=== PATIENT | female | born 1950 | race Caucasian/White ===

== ENCOUNTER 2018-10-14 06:55 | Inpatient (IN) | payer MEDICARE, MEDICAID ==
--- NOTE | 2018-10-14 07:05 | ED ---
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 Per EMS: [place]. The water was reported to be 45-50 degrees F. She left a suicide note at the falls stating she was going to swim until she couldn't swim any more. The note was found by a fisherman, who found the patient. The fisherman called 911 and was pulling her out when police and EMS arrived on scene. In this note, she specified a home and her wishes to be cremated. At bedside, patient states "so cold" and is shivering non-stop. Pt is alert and able to answer questions upon arrival, although shivering. Pt denies falling or jumping. Per nurse, she is A&Ox3. Per [employer] patient also left a note at home saying she was going to the falls. Vitals at bedside: HR: fluctuating wildly. HR by auscultation is 96 bpm and theres a systolic murmur. BP: 118/71. ED provider in room at 0704. Home Medications Medication Instructions Recorded Confirmed Type Vitamin B Complex TAB* [B 1 tab PO DAILY 08/05/15 01/08/16 History Complex-50*] - History Of Current Complaint Hx Obtained From: EMS, Medical Records, Other: - POLICE who report 2 suicide notes Hx From Patient Unobtainable Due To: Extremis Onset/Duration: Still Present Timing: Constant Severity Initially: Severe Severity Currently: Severe Character: Depressed - suicidal per notes Aggravating Factor(s): Nothing Alleviating Factor(s): Nothing Has Suicidal: Reports: Demonstrates Gesture - with attempt to swim in cold water of falls estimated to be 45 degrees Has Homicidal: Reports: Demonstrates Gesture - Allergies/Home Medications Allergies/Adverse Reactions: Allergies Allergy/AdvReac Type Severity Reaction Status Date / Time No Known Allergies Allergy Verified 10/14/18 08:55 PMH/Surg Hx/FS Hx/Imm Hx Previously Healthy: Yes Endocrine/Hematology History: Reports: Hx Anemia - HX OF IN THE PAST Cardiovascular History: Denies: Hx Pacemaker/ICD Musculoskeletal History: Denies: Hx Osteoporosis Sensory History: Denies: Hx Contacts or Glasses, Hx Hearing Aid Opthamlomology History: Denies: Hx Contacts or Glasses - Surgical History Surgery Procedure, Year, and Place: none Infectious Disease History: No Infectious Disease History: Denies: History Other Infectious Disease - Family History Family History: neg: anaesthesia reaction - Social History Lives: With Family - sister Alcohol Use: Occasionally Hx Substance Use: No Substance Use Type: Reports: None Hx Tobacco Use: No Smoking Status (MU): Never Smoked Tobacco Review of Systems - ROS Summary Review of Systems Summary: LEVEL 5 CAVEAT: ROS LIMITED DUE TO PATIENT CONDITION, EXTREMIS Positive: Other - cold to touch Cardiovascular: Negative Respiratory: Negative Gastrointestinal: Negative Positive: Other - cold Positive: Depressed - +SI and suicide gesture All Other Systems Reviewed And Are Negative: No Physical Exam - Summary Physical Exam Summary: Appearance: Ill-appearing, no acute pain distress, well-nourished, wet hair, shivering Skin: Body is cold to touch, mottled only at knees, superficial bruising to LE, no central cyanosis Head: Normal Head/Face inspection, atraumatic Eyes: Conjunctiva clear ENT: Normal inspection Neck: Supple, no nodes, no JVD Respiratory: Lungs clear, normal breath sounds, no respiratory distress Cardio: HR by auscultation is 96 bpm and theres a systolic murmur heard best at apex. Pulses normal, brisk capillary refill Abdomen: Soft, nontender Bowel sounds: Present Musculoskeletal: Strength Intact/ROM intact, no calf tenderness, no edema. Psychological: Suicidal Neuro: Alert, muscle tone normal, no focal deficit GCS: 14 Triage Information Reviewed: Yes Vital Signs Reviewed: Yes - [place] Coma Scale Best Eye Response: 4 - Spontaneous Best Motor Response: 6 - Obeys Commands Best Verbal Response: 4 - Confused Coma Scale Total: 14 Diagnostics - Laboratory Result Diagrams: 10/14/18 07:52 10/14/18 07:52 Lab Statement: Any lab studies that have been ordered have been reviewed, and results considered in the medical decision making process. - Radiology CXR Radiology Interpretation Completed By: Radiologist Summary of Radiographic Findings: IMPRESSION: NO EVIDENCE FOR ACTIVE CARDIOPULMONARY DISEASE. ED provider has reviewed this report. - EKG 0706 Cardiac Rate: NL - 169 bpm (auscultated at bedside at 96bpm) EKG Rhythm: Sinus Rhythm ST Segment: Non-Specific Ectopy: None EKG Comparison: Other - No prior for comparison. Summary of EKG Findings: EKG at 06 shows normal sinus rhythm at 169 bpm (by ausculatation 96 bpm) with prolonged IV non-specific (119), prolonged QTc (643) , non-specific ST, no ectopy. No prior for comparison. Re-Evaluation - Re-Evaluation 1 Re-Evaluation Time: 08:02 Change: Improved Comment: Vitals at bedside: HR: 67 bpm, 94% O2 sat, BP: 98/59. Pt speaking full sentences at bedside. Requesting provider to contact her land lady, Radha Dawn. Course/Dx - Course Course Of Treatment: Pt is a 68 y/o F brought in by EMS and police s/p suicide attempt; she was found in the falls (water temp 45-50 F). She left a suicide note at the falls stating she was going to swim until she couldn't swim any more. A fisherman found the note, and patient in the water. Pt also left a suicide note at home. Pt denies falling or jumping. She is A&Ox3, shivering profusely. Body temp is 25.5 C. 0815: Contacting Manisha's tony durant via phone per her requst: Radha Dawn, . Left voicemail. Called again at 1103, left a second voicemail. 1208: Spoke to Dr. Dawn by phone and only confirmed that patient was admitted to hospital. Critical lab value: lactic acid: 3.1. CXR shows no acute findings. EKG at 0706 shows normal sinus rhythm at 169 bpm (by ausculatation 96 bpm) with prolonged IV non-specific (119), prolonged QTc (643), non-specific ST, no ectopy. No prior for comparison. No definite Pos[place] waves noted. Considerable artifact due to shivering. In the ED course a temperature probe santiago was inserted. Pt was placed on vapotherm warming oxygen, placed on Dino hugger and given warm blankets. Pt's core was warmed prior to extremities. Consulted with Dr. Roach, gis application developer, who will continue re-warming procedure and take patient to ICU. Allergies noted. Pt medications reviewed this visit. Nurses note reviewed. - Differential Dx/Clinical Impression Provider Diagnosis: Hypothermia, Suicide attempt by method other than substance overdose, Systolic murmur - Physician Notifications Discussed Care Of Patient With: Douglas Roach - interventionalist Time Discussed With Above Provider: 07:19 Instructed by Provider To: Other - Will take to ICU. Consult again at 729: Dr. Roach will begin re-warmining protocol. Current body temp at 83 F. - Critical Care Time Critical Care Time: 30-74 min Discharge - Sign-Out/Discharge Documenting (check all that apply): Patient Departure - ADMIT / ICU All imaging exams completed and their final reports reviewed: Yes Patient Received Moderate/Deep Sedation with Procedure: No - Discharge Plan Condition: Critical Disposition: ADMITTED TO [facility] - Billing Disposition and Condition Condition: CRITICAL Disposition: Admitted to [facility] - Attestation Statements Document Initiated by Scribe: Yes Documenting Scribe: Pan Celaya Provider For Whom Scribe is Documenting (Include Credential): Dr. Vaishali Fuchs MD Scribe Attestation: Pan Phillips, scribed for Dr. Vaishali Fuchs MD on 10/17/18 at 2120. Scribe Documentation Reviewed: Yes Provider Attestation: The documentation as recorded by the Pan isaac accurately reflects the service I personally performed and the decisions made by me, Dr. Vaishali Fuchs MD Status of Scribe Document: Viewed
--- OUTSIDE RECORDS SUMMARY | 2018-10-14 07:32 | XMS REPORT | Continuity of Care Document ---
:1950 External Reference #:[id number] Author Name Skyler Hall Care Team Providers Name Role Phone Terry Baldwin MD Care Team Information Referral Manager Unavailable Charles Delgado MD Primary Care Physician Unavailable Payers Date Identification Numbers Payment Provider Subscriber Effective: 2015 Policy Number: [id number] Medicare Manisha Strange PayID: [id number] [address] [place] [address] Effective: 2015 Policy Number: [id number] Medicaid Manisha Strange PayID: [id number] [address] [place] [address] Problems Active Problems Provider Date Impaired glucose tolerance Terry Liang M.D. Onset: 04/21/2016 Pathological fracture of radius due to Ti Chang MD Onset: 04/30/2016 osteoporosis Chronic kidney disease stage 2 Terry Liang M.D. Onset: 07/24/2016 Osteoporosis Terry Liang M.D. Onset: 07/24/2016 Resolved Problems Screening for osteoporosis Ti Chang MD Onset: 05/05/2016 Resolved: 10/23/2016 Closed fracture of left ankle Terry Liang M.D. Onset: 08/09/2015 Resolved: 10/23/2016 Closed fracture of distal end of radius Ti Chang MD Onset: 01/03/2016 Resolved: 10/23/2016 Other fractures of lower end of left radius, Ti Chang MD Onset: 2015 subsequent encounter for closed fracture with routine healing Resolved: 10/23/2016 Family History Date Family Member(s) Observation Comments Father Prostate Cancer Father due to Prostate Cancer () - mets Mother Alzheimer's Disease Mother due to Natural Causes () Siblings 3 2 now First Brother due to Stroke () First Brother due to Multiple Sclerosis () Social History Type Date Description Comments Sex Unknown Marital Status Lives With Alone 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D. 02/05/2016 Capsules day Percocet take 1-2 tabs 30tabs Terry Baldwin, 01/08/2016 - 5-325mg by mouth q4-6 M.D. 02/05/2016 Tablets hours as needed pain Bactrim DS 1 by mouth 30tabs S92.012D Terry Baldwin, 08/22/2015 - twice a day M.D. 11/20/2015 800-160mg Tablets Cephalexin 1po qid Unknown - 500mg 11/20/2015 Capsules Hydrocodone-Acetami 1 by mouth Unknown - nophen every 4-6 hours 04/21/2016 5-325mg prn. Tablets Calcium 600 + D 1 by mouth Unknown - twice a day 10/06/2018 [id number] Tablets Medications Administered in Office Medication SIG Qnty Indications Ordering Provider Date PPD Injection Nurse Visit [facility] 04/07/2016 Immunizations CPT Code Status Date Vaccine Lot # [id number] Given 07/24/2016 Tdap - Tetanus/Diptheria/Acellular Pertussis [id number] Vital Signs Date Vital Result Comment 10/06/2018 9:02am Height 62 inches 5'2" Weight 129.00 lb Heart Rate 78 /min BP Systolic Sitting 117 mmHg BP Diastolic Sitting 73 mmHg BMI (Body Mass Index) 23.6 kg/m2 08/26/2017 10:37am Height 62 inches 5'2" Weight 174.00 lb Heart Rate 87 /min BP Systolic Sitting 114 mmHg BP Diastolic Sitting 64 mmHg Body Temperature 97.9 F O2 % BldC Oximetry 98 % BMI (Body Mass Index) 31.8 kg/m2 10/23/2016 10:31am Weight 174.25 lb Heart Rate 83 /min BP Systolic 138 mmHg BP Diastolic 86 mmHg Body Temperature 97.0 F O2 % BldC Oximetry 95 % 09/01/2016 10:21am Height 66 inches 5'6" Weight 173.00 lb Heart Rate 102 /min BP Systolic 160 mmHg BP Diastolic 87 mmHg Respiratory Rate 16 /min Body Temperature 98.5 F Pain Level 0 BMI (Body Mass Index) 27.9 kg/m2 07/24/2016 10:14am Height 66 inches 5'6" Weight 173.00 lb Heart Rate 90 /min BP Systolic Sitting 128 mmHg BP Diastolic Sitting 84 mmHg Respiratory Rate 15 /min Body Temperature 98.0 F O2 % BldC Oximetry 97 % BMI (Body Mass Index) 27.9 kg/m2 06/30/2016 10:04am Height 66 inches 5'6" Weight 173.00 lb Heart Rate 60 /min Respiratory Rate 16 /min Pain Level 0 BMI (Body Mass Index) 27.9 kg/m2 05/19/2016 1:16pm Height 66 inches 5'6" Weight 173.00 lb Respiratory Rate 16 /min Pain Level 0 BMI (Body Mass Index) 27.9 kg/m2 04/30/2016 9:14am Height 66 inches 5'6" Weight 173.00 lb Respiratory Rate 16 /min Pain Level 0 BMI (Body Mass Index) 27.9 kg/m2 04/21/2016 9:19am Height 66 inches 5'6" Weight 173.00 lb Heart Rate 92 /min BP Systolic Sitting 134 mmHg BP Diastolic Sitting 80 mmHg Body Temperature 97.4 F O2 % BldC Oximetry 97 % BMI (Body Mass Index) 27.9 kg/m2 02/21/2016 10:21am Height 66 inches 5'6" Weight 170.00 lb Heart Rate 60 /min Respiratory Rate 16 /min Pain Level 0 BMI (Body Mass Index) 27.4 kg/m2 02/06/2016 11:17am Height 66 inches 5'6" Weight 175.00 lb Heart Rate 60 /min Respiratory Rate 16 /min Pain Level 0 BMI (Body Mass Index) 28.2 kg/m2 01/21/2016 3:42pm Height 66 inches 5'6" Weight 175.00 lb Body Temperature 98.8 F Pain Level 0 BMI (Body Mass Index) 28.2 kg/m2 01/07/2016 11:48am Height 66 inches 5'6" Weight 175.00 lb Pain Level 0 BMI (Body Mass Index) 28.2 kg/m2 01/03/2016 1:46pm Height 66 inches 5'6" Weight 175.00 lb Pain Level 0 BMI (Body Mass Index) 28.2 kg/m2 11/21/2015 10:22am Height 66 inches 5'6" Weight 172.00 lb Pain Level 0 BMI (Body Mass Index) 27.8 kg/m2 10/10/2015 10:41am Height 66 inches 5'6" Weight 172.00 lb Pain Level 0 BMI (Body Mass Index) 27.8 kg/m2 09/20/2015 10:50am Height 66 inches 5'6" Weight 172.00 lb Pain Level 1 BMI (Body Mass Index) 27.8 kg/m2 09/05/2015 11:03am Height 66 inches 5'6" Weight 172.00 lb Pain Level 0 BMI (Body Mass Index) 27.8 kg/m2 08/28/2015 2:39pm Height 66 inches 5'6" Weight 172.00 lb Pain Level 0 BMI (Body Mass Index) 27.8 kg/m2 08/22/2015 11:06am Height 66 inches 5'6" (stated height) Weight 172.00 lb Pain Level 0 BMI (Body Mass Index) 27.8 kg/m2 08/15/2015 10:13am Height 66 inches 5'6" (stated height) Weight 172.00 lb Pain Level 0 BMI (Body Mass Index) 27.8 kg/m2 08/09/2015 11:21am Height 66 inches 5'6" (stated height) Weight 172.75 lb Heart Rate 98 /min BP Systolic Sitting 120 mmHg BP Diastolic Sitting 78 mmHg Body Temperature 98.0 F Pain Level 0 O2 % BldC Oximetry 96 % BMI (Body Mass Index) 27.9 kg/m2 08/06/2015 2:29pm Height 66 inches 5'6" Weight 175.00 lb Heart Rate 99 /min BP Systolic 120 mmHg BP Diastolic 72 mmHg BMI (Body Mass Index) 28.2 kg/m2 Results Test Date Facility Test Result H/L Range Note Laboratory test 08/24/2018 [facility] Glucose 108 mg/dL High 70-100 finding [address] [place] [address] [phone] Hemoglobin A1c (Glyco HGB) 5.9 % High 4.0-5.6 1 Laboratory 10/23/2016 [facility] Hepatitis C Nonreactive N Nonreactive test finding [address] [place] [address] [phone] Pthi 10/23/2016 [facility] Calcium (PTH 10.0 mg/dL N 8.6-10.[address] Intact) [place], [place] [id number] [phone] PTH Intact 4.3 pmol/L N 1.3-9.3 Laboratory test 10/23/2016 [facility] Vitamin D Total 38.6 N 30-[address] 25(Oh) ng/mL [place], [place] [id number] [phone] Laboratory test 07/24/2016 [facility] Hemoglobin A1c 5.9 5-7 finding Lipid Profile 07/17/2016 [facility] Triglycerides 55 mg/dL N 2, 3 (Trig/Chol/HDL) [address] [place], [place] [id number] [phone] Cholesterol 195 mg/dL N 4 HDL Cholesterol 55.7 mg/dL N 5 LDL Cholesterol 128 mg/dL N 6 Laboratory test 07/17/2016 [facility] Glucose 112 mg/dL High 70-100 [address] [place] [address] [phone] Rubeola Measles 04/21/2016 [facility] Rubeola Positive N [address] (Measles) [place] [address] Antibody [phone] Rubeola IgG Antibody Index 1.4 N 9 Laboratory test 04/21/2016 [facility] Rubella Immune IU/mL N Immune finding [address] [place] [address] [phone] Mumps Igg 04/21/2016 [facility] Mumps Virus Negative N [address] [place] [place] [address] [phone] Mumps IgG Antibody Index 0.4 N 11 Laboratory test 08/09/2015 [facility] Hemoglobin A1c 6.4 % High Less than [address] (Glyco HGB) 6.0 [place] [address] [phone] Basic Metabolic 08/09/2015 [facility] Sodium 138 N 133-[address] mmol/[place] [address] [phone] Potassium 4.2 mmol/L N 3.5-5.0 Chloride 105 mmol/L N 101-111 Co2 Carbon Dioxide 26 mmol/L N 22-32 Anion Gap 7 mmol/L N 2-11 Glucose 84 mg/dL N 70-100 Blood Urea Nitrogen 28 mg/dL High 6-24 Creatinine 1.21 mg/dL High 0.51-0.95 BUN/Creatinine Ratio 23.1 High 8-20 Calcium 9.7 mg/dL N 8.6-10.3 Egfr Non- 44.7 N >60 Egfr 57.4 N >60 13 1 Therapeutic target for the treatment of diabetes mellitus patients is <7% HBA1C, and in selective patients <6.0%. Please refer to [place] [employer] diabetic care guidelines for further information. 2 FASTING 3 Desirable <150 Borderline high 150-199 High 200-499 Very High >500 4 Desirable <200 Borderline high 200-239 High >239 5 Low <40 Desirable: 40-60 High: >60 6 Desirable: <100 mg/dL Near Optimal: 100-129 mg/dL Borderline High: 130-159 mg/dL High: 160-189 mg/dL Very High: >189 mg/dL 7 FASTING 8 Results suggest response to immunization or prior exposure to the virus. REFERENCE VALUE Vaccinated: Positive (>=1.1 AI) Unvaccinated: Negative (<=0.8 AI) 9 Test Performed by: [address] [address] Patient Assessment Coordinator: Eros Vu II, M.D., Ph.D. 10 REFERENCE VALUE Vaccinated: Positive (>=1.1 AI) Unvaccinated: Negative (<=0.8 AI) 11 Test Performed by: [address] [place] [address] Patient Assessment Coordinator: Eros Vu II, M.D., Ph.D. 12 Therapeutic target for the treatment of diabetes Mellitus patients is <7% HBA1C, and in selective patients <6.0%.Please refer to [place] [employer] Diabetic care guidelines for further information. 13 Because ethnic data is not always readily available, this report includes an eGFR for both -Americans and non- Americans. The National Kidney Disease Education Program (NKDEP) does not endorse the use of the MDRD equation for patients that are not between the ages of 18 and 70, are , have extremes of body size, muscle mass, or nutritional status, or are non- or non-. According to the National Kidney Foundation, irrespective of diagnosis, the stage of the disease is based on the level of kidney function: Stage Description GFR(mL/min/1.73 m(2)) 1 Kidney damage with normal or decreased GFR 90 2 Kidney damage with mild decrease in GFR 60-89 3 Moderate decrease in GFR 30-59 4 Severe decrease in GFR 15-29 5 Kidney failure <15 (or dialysis) Procedures Date Code Description Status 05/12/2016 557220904 Bone Mineral Density Test Completed 01/21/2016 12337 Short Arm Cast Application Completed 01/08/2016 38024 Open TX Distal Radial Intra-Articular FX W Fixation Of Completed 3 Or More 01/08/2016 58817 Open TX Distal Radial Intra-Articular FX W Fixation Of Completed 3 Or More 01/03/2016 27950 Closed Treatment Distal Radial FX W/Manipulation Completed 08/15/2015 56185 Short Leg Cast Completed 08/09/2015 98292 EKG Tracing & Interpretation Completed 08/06/2015 55914 Short Leg Cast Completed Encounters Type Date Location Provider Dx Diagnosis Office Visit 10/23/2016 [facility] Charles Jiménez M81.0 Age-related 10:40a Medicine - Tbjuan carlos Delgado M.D.,FACP osteoporosis w/o Rd current pathological fracture R73.01 Impaired fasting glucose Z12.11 Encounter for screening for malignant neoplasm of colon Office Visit 09/01/2016 Orthopedic Ti Chang, S52.592D Oth fx of lower 10:15a Services Of MD brock neff, subs C.M.A. for clos fx w routn heal Office Visit 06/30/2016 Orthopedic Ti Chang, Z13.820 Encounter for 10:00a Services Of MD screening for C.M.A. osteoporosis S52.592D Oth fx of lower end left rad, subs for clos fx w routn heal M81.0 Age-related osteoporosis w/o current pathological fracture Z87.81 Personal history of (healed) traumatic fracture Z09 Encntr for f/u exam aft trtmt for cond oth than verena neoplm Office Visit 05/19/2016 1:00p Orthopedic Ti Chang, Z13.820 Encounter for Services Of screening for C.M.A. osteoporosis S52.592D Oth fx of lower end left rad, subs for clos fx w routn heal M80.032A Age-rel osteopor w current path fracture, l forearm, init M80.032D Age-rel osteopor w crnt path fx, l forearm, 7thD Office Visit 04/30/2016 9:00a Orthopedic Ti Chang, S52.592D Oth fx of Services Of Germán FRANCIS lower end left rad, subs for clos fx w routn heal M80.032A Age-rel osteopor w current path fracture, l forearm, init M80.032D Age-rel osteopor w crnt path fx, l forearm, 7thD Office Visit 04/21/2016 9:00a [facility] Internal Terry Z23 Encounter for Medicine - Jony Liang immunization [place] R73.09 Other abnormal glucose Z02.79 Encounter for issue of other medical certificate Office Visit 11/21/2015 Orthopedic Terry S92.012D Disp fx of body of 10:15a Services Of Jony Baldwin left calcaneus, C.M.A. subs for fx w routn heal Office Visit 10/10/2015 Jasvir Stewart S92.012D Disp fx of body of 10:45a Services Of Jony Baldwin left calcaneus, C.M.A. subs for fx w routn heal Office Visit 09/20/2015 Jasvir Lockett2.012D Disp fx of body of 10:50a Services Of Jony Baldwin left calcaneus, C.M.A. subs for fx w routn heal Office Visit 09/05/2015 Orthopedic Terry Lockett2.012D Disp fx of body of 11:00a Services Of Jony Baldwin left calcaneus, C.M.A. subs for fx w [facility] Office Visit 08/28/2015 Orthopedic Terry S92.012D Disp fx of body of 2:40p Services Of Jony Baldwin left calcaneus, C.M.A. subs for fx w [facility] Office Visit 08/22/2015 Orthopedic Terry S92.012D Disp fx of body of 11:15a Services Of Jony Baldwin left calcaneus, C.M.A. subs for fx w [facility] Office Visit 08/15/2015 Orthopedic Terry S92.012D Disp fx of body of 10:30a Services Of Jony Baldwin left calcaneus, C.M.A. subs for fx w [facility] Office Visit 08/09/2015 [facility] Internal Terry Z01.818 Encounter for other 11:00a Meche Liang M.D. preprocedural examination S82.892A Oth fracture of left lower leg, init for clos fx Office Visit 08/06/2015 2:00p Orthopedic Terry S92.012A Disp fx of body Services Of Jony Baldwin of left C.M.A. calcaneus, init for clos fx Plan of Treatment 10/06/2018 - Darlene Ledezma MDZ00.00 Encounter for general adult medical examination without abnoComments:You are due for breast cancer screening. Your cholesterol profile and other labs were reviewed today/are due, so please go for fasting blood draw and I will send you a letter with results within 2 weeks.Remember to wear sunscreen and see your dentist regularly.For optimum health, I recommend some form of regular exercise and integrating a lot of plant -based foods into your daily diet.I recommend an eye exam. We advise that everybody have a healthcare proxy and advanced directives on file.R73.01 Impaired fasting glucoseComments:Your hemoglobin A1c is down to 5.9%. Keep up the good workN18.3 Chronic kidney disease, stage 3 (moderate)M81.0 Age-related osteoporosis without current pathological fractuNew Xrays:Dexa Bone Dens Axial Skeleton (Hips, Pelvis, Spine), Ordered: 10/06/18Comments:make sure to get 1, 000mg a day at least from your diet.Vitamin D should be 1,000U every day and 2, 000U when you are not spending time out in the sun.Please call us for results of the test the week nmcmsE11.31 Encounter for screening mammogram for malignant neoplasm ofNew Xrays:Mammogram Screening Louie, Ordered: 10/06/18
[2018-10-14] MEDS ORDERED: NS 0.9% 1000 ML** 1,000 ML IV ONE (07:40)
[2018-10-14] MEDS ORDERED: NS 0.9% 1000 ML** 1,000 ML IV SCH (07:45)
[2018-10-14 08:00] LABS: ABS Basophils 0.1 10^3/ul (0-0.2); ABS Eosinophils 0.1 10^3/ul (0-0.6); ABS Lymphocytes 1.5 10^3/ul (1.0-4.8); ABS Neutrophils 8.7 10^3/ul (1.5-7.7); Eosinophil % 0.9 %; Hematocrit 38 % (35-47); Hemoglobin 12.4 g/dL (12.0-16.0); Lymphocyte % 12.9 %; Mean Corpuscular HGB Conc 33 g/dL (31-36); Mean Corpuscular Hemoglobin 32 pg (27-31); Mean Corpuscular Volume 97 fL (80-97); Mean Platelet Volume 8.9 fL (7.4-10.4); Nucleated Red Blood Cells % 0.1; Platelet Count 208 10^3/uL (150-450); Red Blood Count 3.91 10^6 /uL (3.70-4.87); Red Cell Distribution Width 13 % (10.5-15); White Blood Count 11.3 10^3/uL (3.5-10.8)
[2018-10-14 08:19] LABS: Albumin 3.5 g/dL (3.2-5.2); Albumin/Globulin Ratio 1.6 (1-3); BUN/Creatinine Ratio 16.5 (8-20); Calcium 8.8 mg/dL (8.6-10.3); EGFR African American 60.2 (>60); EGFR Non-African American 49.8 (>60); Globulin 2.2 g/dL (2-4); Potassium 4.2 mmol/L (3.5-5.0); Total Bilirubin 0.3 mg/dL (0.2-1.0); Total Protein 5.7 g/dL (6.4-8.9)
[2018-10-14 09:30] LABS: Urine Appearance Cloudy; Urine Bacteria Absent (Absent); Urine Bilirubin Negative (Negative); Urine Blood Negative (Negative); Urine Color Yellow; Urine Glucose 2+(150 mg/dL) (Negative); Urine Ketones Trace (Negative); Urine Nitrite Positive (Negative); Urine Protein 1+(30 mg/dL) (Negative); Urine Red Blood Cell 1+(3-5/hpf) (Absent); Urine Specific Gravity 1.016 (1.010-1.030); Urine Squamous Epithelial Cell Present (Absent); Urine Urobilinogen Negative (Negative); Urine White Blood Cell 3+(>20/hpf) (Absent)
[2018-10-14 09:34] LABS: Urine Benzodiazepine Screen None Detected (None Detect); Urine Opiates Screen None Detected (None Detect)
[2018-10-14 10:03] LABS: Activated Partial Thrombo Time 23.6 seconds (26.0-36.3); INR 0.89 (0.82-1.09)
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
[2018-10-14] MEDS ORDERED: hydrOXYzine HCL TAB* 50 MG PO PRN (14:18)
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
[2018-10-15 09:07] LABS: HDL Cholesterol 56.7 mg/dL
--- NOTE | 2018-10-16 18:58 | PN ---
Subjective - Subjective Date of Service: 10/16/18 Subjective: "I am not crying as often!" Radha endorses lower distress level, improvement in mood, sleep, appetite and outlook on her circumstances, she denies SI or urges for sib and she contracts for safety. Per staff she remains adherent to unit routines. Objective - General Observations Appearance: Well Groomed Appears Stated Age: Yes Stature: WNL Posture: WNL Eye Contact: Average Behavior/Activity: WNL - Interaction Observations Attitude Towards Examiner: Cooperative Stated Mood: Dysphoric Affect: Restricted Speech Pattern/Tone: Clear, Normal Volume Thought Process: Coherent, Goal Directed Perception: WNL Thought Content: WNL Hallucination Type: None Delusion Type: None - Cognitive Function Orientation: A&O x 4 Cognition: WNL Estimated Intelligence: Normal Judgment Within Normal Limits: Yes - Medication Compliance Cooperative with Inpatient Medication Regimen: Yes - Group Participation Participates in Group Activities: Yes Assessment - Assessment Merits Inpatient Hospitalization: Consolidate Improvements, For Discharge Planning Clinical Impression: Stabilizing in this structured setting. Plan - Plan Treatment Plan: Name: RADHA GONZALEZ Birthdate: 1950 [id number] Continued Medication Management: Continue Outpt Medication Medications: Current Medications Hydroxyzine HCl (Atarax Tab*) 50 mg PO Q6H PRN PRN Reason: ANXIETY - Discharge Plan Discharge Plan: Outpatient Follow Up Outpatient Program: [facility]
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
[2018-10-18] MEDS: VITAMIN B50 PO SCH ×2 (09:46)
--- NOTE | 2018-10-18 13:16 | PN ---
BSU: Group Therapy Note - Service Type Service Type: 24090 Group Psychotherapy - Cognitive Behavioral Group Therapy ( CBT):Patient was attentive and participatory in CBT programming this morning, and remained in good behavioral control. Patient expressed positive insights regarding relevant treatment interventions and goals.
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
[2018-10-19 07:42] LABS: BUN/Creatinine Ratio 14.7 (8-20); Calcium 9.5 mg/dL (8.6-10.3); EGFR African American 70.6 (>60); EGFR Non-African American 58.3 (>60); Potassium 4.2 mmol/L (3.5-5.0)
[2018-10-19] MEDS: VITAMIN B50 PO SCH (09:01)
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
--- NOTE | 2018-10-19 16:24 | PN ---
BSU: Group Therapy Note - Service Type Service Type: [id number] Group Psychotherapy - Medication Education Group: Patient attended group and presented with flat affect that did not vary with discussion. Although responsive to direct prompts to respond to questions, patient did not engage in spontaneous conversation.
[2018-10-20] MEDS: VITAMIN B50 PO SCH (08:45)
[2018-10-20 14:07] VITALS: BP 144/66
--- NOTE | 2018-10-20 14:25 | PN ---
BSU: Group Therapy Note - Service Type Service Type: 23822 Group Psychotherapy - Cognitive Behavioral Group Therapy ( CBT):Patient was attentive and participatory in CBT programming this morning, and remained in good behavioral control. Patient expressed positive insights regarding relevant treatment interventions and goals.
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
== END 2018-10-20 14:30 | disposition home or self-care (01) | DRG 881 ==
LOC: ED 06:55 → ICU 07:46 → BSU 14:16
PROVIDERS: ADMIT Internal Medicine Critical Care Medicine; ATTEND Psychiatry & Neurology Psychiatry
PROC: GZHZZZZ Group Psychotherapy (ICD-10-PCS; principal; 2018-10-18)
DX: F43.21 Adjustment disorder with depressed mood (principal); T68.XXXA Hypothermia, initial encounter; R40.2362 Coma scale, best motor response, obeys commands, at arrival to emergency department; R01.1 Cardiac murmur, unspecified; R40.2142 Coma scale, eyes open, spontaneous, at arrival to emergency department; M81.0 Age-related osteoporosis without current pathological fracture; R40.2242 Coma scale, best verbal response, confused conversation, at arrival to emergency department; Y92.9 Unspecified place or not applicable; X71.3XXA Intentional self-harm by drowning and submersion in natural water, initial encounter; Z72.89 Other problems related to lifestyle; Z63.4 Disappearance and death of family member
CPT/HCPCS: 36415; 71045; 80048; 80053; 80061; 80307; 80320; 81003; 81015; 82550; 83036; 83605; 85025; 85610; 85730; 87077; 87086; 87186; 90853; 93005; 99222; 99231; 99232; 99238; 99285; G0480